=== PATIENT | male | born 2005 | race Hispanic/Latino ===

== ENCOUNTER 2025-03-19 19:05 | Emergency (ER) | payer SELFPAY ==
[2025-03-19] MEDS ORDERED: Prochlorperazine 10 MG/2 ML VIAL ONE (19:40)
[2025-03-19] MEDS ORDERED: diphenhydrAMINE 50 MG/ML VIAL ONE (19:40)
[2025-03-19 19:51] LABS: #Basophils 0.08 10x3/uL (0.0-0.2); #Eosinophils 0.11 10x3/uL (0.0-0.5); #Monocytes 0.97 10x3/uL (0.0-1.1); #Neutrophils 6.80 10x3/uL (1.5-8.4); %Basophils 0.7 % (0.0-2.0); %Eosinophils 1.0 % (0.0-6.0); %Lymphocytes 29.9 % (18.0-47.0); %Monocytes 8.5 % (0.0-10.0); %Neutrophils 59.5 % (40.0-75.0); Hematocrit 40.8 % (38.8-50.0); Hemoglobin 14.4 g/dL (13.5-17.5); Mean Corpuscular Hemoglobin 30.6 pg (27.0-33.0); Mean Corpuscular Volume 86.8 fL (81.2-95.1); Platelet Count 318 10x3/uL (150-450); Red Blood Cell (RBC) Count 4.70 10x6/uL (4.32-5.72); White Blood Cell (WBC) Count 11.42 10x3/uL (3.5-10.5)
[2025-03-19 20:13] LABS: ALT (SGPT) 18 U/L (Less than 45); AST (SGOT) 26 U/L (11-34); Albumin 4.8 g/dL (3.1-4.5); Alkaline Phosphatase 56 U/L (40-110); Anion Gap 14 mmol/L (10-20); BUN (Urea Nitrogen) 9 mg/dL (8.9-20.6); Bilirubin, Total 0.4 mg/dL (0.3-1.2); Calc. Creatinine Clearance 0 mL/min (70-130); Calcium 10.0 mg/dL (7.8-10.44); Carbon Dioxide 31 mmol/L (22-29); Chloride 100 mmol/L (98-107); Globulin 2.9 g/dL (2.4-3.5); Glucose 102 mg/dL (70-105); Lipase 24 U/L (8-78); Potassium 3.3 mmol/L (3.5-5.1); Sodium 142 mmol/L (136-145)
== END 2025-03-19 20:41 | disposition home or self-care (01) ==
LOC: CSHERS 19:05
DX: K21.9 Gastro-esophageal reflux disease without esophagitis (principal); E86.0 Dehydration; F10.90 Alcohol use, unspecified, uncomplicated; E87.6 Hypokalemia
CPT/HCPCS: 36415; 80053; 83605; 83690; 85025; 96365; 96375; J0780; J1200